=== PATIENT | male | born 1965 | race Caucasian/White ===

== ENCOUNTER → 2020-06-17 11:48 | Outpatient (BNVA) | payer MEDICARE, OTHER, SELFPAY | PROVIDERS: PCP Internal Medicine; Referring Provider Internal Medicine; Visit Provider Physician Assistant | DX: Z01.818 Encounter for other preprocedural examination (principal) | CPT/HCPCS: 99213 ==

== ENCOUNTER 2021-04-07 14:20 | Emergency (ER) | payer MEDICARE, MEDICAID, SELFPAY ==
[2021-04-07 14:23] VITALS: BP 141/90; PULSE 100; RESP 94; TEMP 37.1; O2SAT 18; BMI 26.3
[2021-04-07 18:05] VITALS: BP 166/96; PULSE 94; RESP 18; TEMP 37; O2SAT 99
--- NOTE | 2021-04-07 18:07 | PC.NURSE ---
Patient awake and alert. Skin PWD, resp even and non labored, speaking in full, clear sentences. ambulatory with steady gait. presents to ED w/ c/o sores on upper back, legs and ankles x 13 days.
[2021-04-07 18:50] LABS: MANUAL DIFF FLAG NO
[2021-04-07 18:52] LABS: Basophils Percent Auto 0.2 % (0-2); Eosinophils Absolute Auto 0.1 X10*3/uL (0.0-0.4); Eosinophils Percent Auto 0.6 % (0-4); Hematocrit 36.7 % (42-52); Hemoglobin 12.4 g/dl (14.0-18.0); Imm Gran Abs Auto 0.03 X10*3/uL (0.00-0.03); Imm Gran Pct Auto 0.3 % (0.0-0.4); Lymphocytes Absolute Auto 0.9 X10*3/uL (1.2-4.9); Lymphocytes Percent Auto 7.5 % (20-40); Mean Corpuscular HGB Conc 33.8 g/dl (31.0-36.0); Mean Corpuscular Hemoglobin 30.5 pg (27.0-33.0); Mean Corpuscular Volume 90.2 fL (80-98); Mean Platelet Volume 9.1 fL (9.4-12.4); Monocytes Absolute Auto 0.7 X10*3/uL (0.1-1.2); Monocytes Percent Auto 6.3 % (2-11); Neutrophils Absolute Auto 9.9 X10*3/uL (2.0-8.3); Neutrophils Percent Auto 85.1 % (45-73); Platelet Count 261 X10*3/uL (160-400); Red Blood Count 4.07 X10*6/uL (4.60-5.80); Red Cell Distribution Width 14.6 % (11.0-16.0); White Blood Count 11.7 X10*3/uL (4.8-10.8)
[2021-04-07 19:14] LABS: Lactic Acid 0.9 mmol/L (0.5-2.0)
[2021-04-07 19:20] LABS: Alanine Aminotransferase 95 U/L (0-40); Albumin Level 3.5 g/dL (3.5-5.0); Alkaline Phosphatase 113 U/L (39-117); Anion Gap 13 (12-20); Aspartate Amino Transferase 73 U/L (5-37); Bilirubin Direct 0.7 mg/dL (0.0-0.5); Bilirubin Total 1.1 mg/dL (0.0-1.0); Blood Urea Nitrogen 10 mg/dL (9-16); Calcium 8.7 mg/dL (8.4-10.2); Carbon Dioxide 32 mmol/L (22-29); Chloride 98 mmol/L (96-108); Creatinine Clr Calc Pharmacy 127.3; Estimated Glomerular Filt Rate > 60; Glucose Random 80 mg/dL (60-115); Magnesium 1.9 mg/dL (1.6-2.6); Potassium 4.2 mmol/L (3.3-5.1); Sodium 139 mmol/L (135-145); Total Protein 6.2 g/dL (6.5-8.0)
[2021-04-07 19:23] LABS: B Type Natriuretic Peptide 82 pg/mL (<100)
--- NOTE | 2021-04-07 19:47 | ED_ITS ---
HPI - Skin/Abscess/Foreign Bdy General Chief complaint: Skin/Abscess/Foreign Body Stated complaint: sores all over body Time Seen by Provider: 04/07/21 18:05 Source: patient Mode of arrival: ambulatory History of Present Illness HPI narrative: 55-year-old male w/ a past medical history of asthma, chronic back pain, presenting to the ED complaining diffuse body sores/rash x4 days. Reports slight drainage from some wounds. recently came home from [place]. Denies new exposures, new medication, IVDA, drug use, insect/tick bites, fever, chills complaint: rash Related Data Home Medications Medication Instructions Recorded Confirmed albuterol sulfate 90 mcg/actuation 2 puff INHALATION Q6H PRN 06/17/20 06/17/20 aerosol inhaler cyclobenzaprine 10 mg tablet 10 mg PO TID 06/17/20 06/17/20 Previous Rx's Medication Instructions Recorded miralax See Rx Instructions PO 06/17/20 USEASDIRECTD #238 g cephalexin 500 mg capsule 500 mg PO QID 7 Days #28 cap 04/07/21 doxycycline hyclate 100 mg tablet 100 mg PO BID 7 Days #14 tab 04/07/21 Allergies Allergy/AdvReac Type Severity Reaction Status Date / Time No Known Allergies Allergy Unverified 05/13/20 16:13 [No Known Allergies*] Review of Systems Review of Systems: Constitutional: No Fever, No Chills ENT/Mouth: No Ear Pain, No Swallowing Difficulty Cardiovascular: No Chest Pain, No SOB Respiratory: No Cough Gastrointestinal: No Nausea, No Vomiting, No Abdominal pain Musculoskeletal: No joint pain, No Myalgias, No Joint Swelling Skin: + Skin Lesions, + rash Neuro: No Weakness, No Numbness, No Paresthesias Yes all other systems are reviewed and are negative [facility] Past Medical History Attestation statement: The following information was validated with the patient. Medical History (Updated 04/07/21 @ 20:28 by CHIARA Borjas) Asthma Chronic back pain Surgical History Status post right knee replacement Family History Family History (Updated 06/17/20 @ 14:37 by Yadi Thomson PA-C) Unknown No problems noted. Social History Social History (Updated 06/17/20 @ 14:38 by Yadi Thomson PA-C) Household Members Other:: lives with a friend Alcohol intake: never Substance Use Type: Marijuana Advance Directives: No Advance Directives Information Provided: No Current occupational status: disabled Physical Exam Vital Signs: Vital Signs: Last Vital Signs Temp 98.6 F 04/07/21 18:05 Pulse 94 04/07/21 18:05 Resp 18 04/07/21 18:05 BP 166/96 H 04/07/21 18:05 Pulse Ox 99 04/07/21 18:05 Body Mass Index 26.3 Const: General: cooperative, healthy appearing and no acute distress Orientation/consciousness: patient oriented x3 Limitations: no limitations HENMT: Head: Yes normal to inspection Ears: hearing grossly normal bilaterally General nose exam: Normal external nose present Face and sinus: Yes normal facial exam Eyes: General: appearance normal, both eyes and all related structures EOM: EOMs intact bilaterally Neck: Neck: Yes normal visual inspection and Yes no meningeal signs Resp: Effort & Inspection: normal respiratory effort and no respiratory distress Cardio: Rate: regular rate GI: Inspection: Yes normal to inspection Palpation (GI): Soft to palpation, nontender, no guarding and not rigid Skin: Other: Diffuse open skin sores to upper back, bilateral knees/ankles and arms. Some with slight pus drainage and focal surrounding erythema. No streaking or fluctuance. No induration. No warmth Neuro: General: patient oriented x3 and no meningeal signs Gait exam (Neuro): Normal gait present Extrem: General: Yes edema Course Course Course Narrative: -leukocytosis of 11.7 (appears chronic), bilirubins mildly elevated, AST/ALT mildly elevated. Low concern for severe sepsis -lactic acid negative -tox screen positive for opiates and benzos -2025--patient received 1st dose of doxycycline and Keflex in the ED. Results discussed with patient including worrisome signs and symptoms and strict return precautions stressed that symptoms are likely from drug use/skin popping, disc ussed with patient that he should stop and follow-up with PCP MDM - Skin/Abscess/Foreign Bdy MDM Narrative Medical decision making narrative: 55-year-old male w/ a past medical history of asthma, chronic back pain, presenting to the ED complaining diffuse body sores/rash x4 days. On exam VSS, NAD/well-appearing with physical exam as above. Please refer to images. Concern for skin popping/substance abuse causing rash. Low concern for severe sepsis at this time or bacteremia Plan: Labs, lactic/blood cultures, p.o. antibiotics Medical Records Attestation: I reviewed the patient's medical records. Lab Data Attestation: I reviewed the patient's lab results. Result diagrams: 04/07/21 18:42 04/07/21 18:42 Labs: Lab Results 04/07/21 04/07/21 04/07/21 Range/Units 18:42 18:42 18:42 WBC 11.7 H (4.8-10.8) X10*3/uL RBC 4.07 L (4.60-5.80) X10*6/uL Hgb 12.4 L (14.0-18.0) g/dl Hct 36.7 L (42-52) % MCV 90.2 (80-98) fL MCH 30.5 (27.0-33.0) pg MCHC 33.8 (31.0-36.0) g/dl RDW 14.6 (11.0-16.0) % Plt Count 261 (160-400) X10*3/uL MPV 9.1 L (9.4-12.4) fL Immature Gran % (Auto) 0.3 (0.0-0.4) % Neut % (Auto) 85.1 H (45-73) % Lymph % (Auto) 7.5 L (20-40) % [place] % (Auto) 6.3 (2-11) % Eos % (Auto) 0.6 (0-4) % Baso % (Auto) 0.2 (0-2) % Lymph # (Auto) 0.9 L (1.2-4.9) X10*3/uL [place] # (Auto) 0.7 (0.1-1.2) X10*3/uL Eos # (Auto) 0.1 (0.0-0.4) X10*3/uL Baso # (Auto) 0.0 (0.0-0.2) X10*3/uL Abs Immat Gran (auto) 0.03 (0.00-0.03) X10*3/uL Absolute Neuts (auto) 9.9 H (2.0-8.3) X10*3/uL Absolute Nucleated RBC 0.000 (0.0-0.012) X10*3/uL Nucleated RBC % (auto) 0.0 (0.0-0.2) /100WBC Sodium 139 (135-145) mmol/L Potassium 4.2 (3.3-5.1) mmol/L Chloride 98 (96-108) mmol/L Carbon Dioxide 32 H (22-29) mmol/L Anion Gap 13 (12-20) BUN 10 (9-16) mg/dL Creatinine 0.78 (0.5-1.4) mg/dL Estim Creat Clear Calc 127.3 Estimated GFR > 60 Random Glucose 80 (60-115) mg/dL Lactic Acid 0.9 (0.5-2.0) mmol/L Calcium 8.7 (8.4-10.2) mg/dL Magnesium 1.9 (1.6-2.6) mg/dL Total Bilirubin 1.1 H (0.0-1.0) mg/dL Direct Bilirubin 0.7 H (0.0-0.5) mg/dL AST 73 H (5-37) U/L ALT 95 H (0-40) U/L Alkaline Phosphatase 113 (39-117) U/L B-Natriuretic Peptide (<100) pg/mL Total Protein 6.2 L (6.5-8.0) g/dL Albumin 3.5 (3.5-5.0) g/dL 04/07/21 Range/Units 18:42 WBC (4.8-10.8) X10*3/uL RBC (4.60-5.80) X10*6/uL Hgb (14.0-18.0) g/dl Hct (42-52) % MCV (80-98) fL MCH (27.0-33.0) pg MCHC (31.0-36.0) g/dl RDW (11.0-16.0) % Plt Count (160-400) X10*3/uL MPV (9.4-12.4) fL Immature Gran % (Auto) (0.0-0.4) % Neut % (Auto) (45-73) % Lymph % (Auto) (20-40) % [place] % (Auto) (2-11) % Eos % (Auto) (0-4) % Baso % (Auto) (0-2) % Lymph # (Auto) (1.2-4.9) X10*3/uL [place] # (Auto) (0.1-1.2) X10*3/uL Eos # (Auto) (0.0-0.4) X10*3/uL Baso # (Auto) (0.0-0.2) X10*3/uL Abs Immat Gran (auto) (0.00-0.03) X10*3/uL Absolute Neuts (auto) (2.0-8.3) X10*3/uL Absolute Nucleated RBC (0.0-0.012) X10*3/uL Nucleated RBC % (auto) (0.0-0.2) /100WBC Sodium (135-145) mmol/L Potassium (3.3-5.1) mmol/L Chloride (96-108) mmol/L Carbon Dioxide (22-29) mmol/L Anion Gap (12-20) BUN (9-16) mg/dL Creatinine (0.5-1.4) mg/dL Estim Creat Clear Calc Estimated GFR Random Glucose (60-115) mg/dL Lactic Acid (0.5-2.0) mmol/L Calcium (8.4-10.2) mg/dL Magnesium (1.6-2.6) mg/dL Total Bilirubin (0.0-1.0) mg/dL Direct Bilirubin (0.0-0.5) mg/dL AST (5-37) U/L ALT (0-40) U/L Alkaline Phosphatase (39-117) U/L B-Natriuretic Peptide 82 (<100) pg/mL Total Protein (6.5-8.0) g/dL Albumin (3.5-5.0) g/dL Discharge Plan Discharge Clinical Impression: Rash Patient Disposition: Home, Self-Care Instructions: Acute Rash (ED), Abscess (ED) Additional Instructions: Liver enzymes are mildly elevated today in the ED, this needs to be recheck to/monitored by her primary care doctor You need to stop using drugs this is likely the cause of her symptoms Your skin is infected, doxycycline and Keflex are antibiotics please take as prescribed If the rash continues to worsen, you have drainage from area, fever please return to the ED Prescriptions: New cephalexin 500 mg capsule 500 mg PO QID 7 Days Qty: 28 RF: 0 doxycycline hyclate 100 mg tablet 100 mg PO BID 7 Days Qty: 14 RF: 0 No Action cyclobenzaprine 10 mg tablet 10 mg PO TID RF: 0 albuterol sulfate 90 mcg/actuation HFA aerosol inhaler 2 puff inhalation Q6H PRNRF: 0 miralax See Rx Instructions PO USEASDIRECTD Qty: 238 RF: 0 Referrals: Azeem Peña DO [Primary Care Provider] - 2 days (For re-evaluation)
[2021-04-07] MEDS: cephALEXin 500 MG CAPSULE PO (20:01)
== END 2021-04-07 20:37 | disposition home or self-care (01) ==
PROVIDERS: Physician Assistant; Emergency Provider Emergency Medicine Emergency Medical Services; PCP Internal Medicine
DX: R21 Rash and other nonspecific skin eruption (principal)
CPT/HCPCS: 36415; 80048; 80076; 83605; 83735; 83880; 85025; 87040; 99283; 99284

== ENCOUNTER 2021-08-01 08:36 | Outpatient (REF) | payer MEDICARE, SELFPAY | END 2021-08-01 08:37 | disposition home or self-care (01) | LOC: HO.HOSX 08:36 | PROVIDERS: Visit Provider Orthopaedic Surgery | DX: Z13.89 Encounter for screening for other disorder (principal) ==

== ENCOUNTER 2021-10-10 08:23 | Outpatient (REF) | payer MEDICARE, SELFPAY | END 2021-10-10 08:24 | disposition home or self-care (01) | LOC: HO.HOSX 08:23 | PROVIDERS: Visit Provider Orthopaedic Surgery | DX: Z13.89 Encounter for screening for other disorder (principal) ==

== ENCOUNTER 2021-10-13 09:14 | Outpatient (REF) | payer MEDICARE, SELFPAY | END 2021-10-13 09:15 | disposition home or self-care (01) | LOC: HO.HOSX 09:14 | PROVIDERS: Visit Provider Orthopaedic Surgery | DX: Z13.89 Encounter for screening for other disorder (principal) ==

== ENCOUNTER 2021-11-04 09:38 | Outpatient (REF) | payer MEDICARE, SELFPAY ==
--- NOTE | ~2021-11-04 | XR_ITS ---
EXAMINATION: XR PELVIS CLINICAL INFORMATION: Hip pain COMPARISON: CT abdomen and pelvis 07/17/2018 TECHNIQUE: AP view of the pelvis. FINDINGS: There are degenerative changes lumbar spine with mild dextrocurvature and disc narrowing L3-L4 and L4-L5. The SI joints and pubis show no diastases. The bony pelvis is intact. There is no destructive process. No fracture. No periostitis. Hips show no focal narrowing or subchondral sclerosis. No erosive changes or visible chondrocalcinosis. XR/XR pelvis 1-2V IMPRESSION: 1. Degenerative changes lower lumbar spine with disc narrowing and endplate sclerosis and vertebral spurring L3-L5. 2. No hip joint narrowing or erosive change.
== END 2021-11-04 09:39 | disposition home or self-care (01) ==
LOC: HO.HOSX 09:38
PROVIDERS: Visit Provider Orthopaedic Surgery
DX: M16.12 Unilateral primary osteoarthritis, left hip (principal); Z96.651 Presence of right artificial knee joint
CPT/HCPCS: 72170